=== PATIENT | male | born 1980 | race Two or more races ===

== ENCOUNTER 2024-12-22 15:28 | Emergency (ER) | payer OTHER, SELFPAY ==
[2024-12-22 15:53] VITALS: BP 110/72; PULSE 72; TEMP 37.3; O2SAT 97; BMI 21.7
--- NOTE | 2024-12-22 16:02 | XR_ITS ---
The [address] [address] Patient Name: FLY DOMINIQUE MRN: [id number] date: 1980 Sex: M Assigned Patient Location: ER Current Patient Location: ER Accession/Order Number: [id number] Exam Date: 12/22/2024 16:22 Report Date: 12/22/2024 16:39 At the request of: PATEL BRIGHT MD Procedure: XR hand RT min 3V right wrist 3 views, right hand 3 views CLINICAL HISTORY: injury COMPARISON: None FINDINGS: Right wrist: No focal soft tissue abnormality or acute bony process. Joint spaces appear maintained. No bony erosions. Right hand: No focal soft tissue abnormality. No acute bony process is seen. Joint spaces appear maintained. No bony erosions. XR/XR hand RT min 3V IMPRESSION: NO ACUTE BONY PROCESS. Impression dictated by: Pawel Herrera Jr., D.ODesiree 12/22/2024 4:39 PM Dictation Location: [facility] Electronically authenticated by: [id number] Y Date: 12/22/2024 16:39
--- NOTE | 2024-12-22 16:02 | XR_ITS ---
The [address] [address] Patient Name: FYL DOMINIQUE MRN: [id number] date: 1980 Sex: M Assigned Patient Location: ER Current Patient Location: ER Accession/Order Number: [id number] Exam Date: 12/22/2024 16:22 Report Date: 12/22/2024 16:39 At the request of: PATEL BRIGHT MD Procedure: XR hand RT min 3V right wrist 3 views, right hand 3 views CLINICAL HISTORY: injury COMPARISON: None FINDINGS: Right wrist: No focal soft tissue abnormality or acute bony process. Joint spaces appear maintained. No bony erosions. Right hand: No focal soft tissue abnormality. No acute bony process is seen. Joint spaces appear maintained. No bony erosions. XR/XR wrist RT min 3V IMPRESSION: NO ACUTE BONY PROCESS. Impression dictated by: Pawel Herrera Jr., D.ODesiree 12/22/2024 4:39 PM Dictation Location: [facility] Electronically authenticated by: [id number] Y Date: 12/22/2024 16:39
--- NOTE | 2024-12-22 17:20 | ED.GENADUL1 ---
HPI HPI - General Adult General Chief complaint: Extremity Injury, Upper Stated complaint: RIGHT UPPER EXTREMITY PROBLEM Time Seen by Provider: 12/22/24 17:08 Source: patient Mode of arrival: walk-in Limitations: no limitations History of Present Illness HPI narrative: Patient is a 44-year-old male who presents with right wrist pain after a fall on outstretched hands about a week and a half ago. Patient was evaluated at an urgent care and x-rays were negative for fracture. He has had persistent wrist pain that somewhat radiates into the forearm since the fall. He works with his hands a lot and has had a lot of issues and pain with gripping, pushing and pulling. He has been taking ibuprofen and Tylenol at home, using ice, and elevating. He has been wearing a wrist splint and his pain persists. He denies any numbness or tingling into the fingers. Related Data Allergies Allergy/AdvReac Type Severity Reaction Status Date / Time No Known Drug Allergies Allergy Verified 12/22/24 15:52 Opioid HPI Opioid Management Most Recent Opioid Data: Last Pain Scale 5 Today, 15:53 Review of Systems ROS Status of ROS 10 or more systems reviewed and unremarkable except as noted in history and below PFSH PFSH Social History Little interest or pleasure in doing things: not at all Feeling down, depressed, or hopeless: not at all Exam Narrative Exam Narrative: General: No distress, age-appropriate Skin: Warm, dry, no pallor. No rash. Head: Normocephalic, atraumatic. Eye: Pupils are equal, round and EOMI. No scleral icterus. Cardiovascular: Regular Rate and Rhythm without murmur, gallop or rub. Respiratory: No accessory muscle use or respiratory distress. Back: No midline thoracic or lumbar vertebral tenderness. Musculoskeletal: Full ROM of all extremities, except right wrist reduced ROM secondary to pain. Tenderness with palpation at the distal radius. Mild wrist swelling patient able to make a full fist. 2+ radial pulse palpated. Less than 2-second capillary refill to all fingers and thumb. Sensation intact distally with light touch. Neurological: A&O x4. No cranial nerve dysfunction observed. No truncal ataxia. Moves all extremities. Sensation intact. Psychiatric: Cooperative and interactive. Normal mood and affect. Constitutional Vital Signs, click to edit/add: Last Vital Signs Temp 99.1 F 12/22/24 15:53 Pulse 72 10/05/25 15:53 Resp 12 12/22/24 15:53 BP 110/72 12/22/24 15:53 Pulse Ox 97 12/22/24 15:53 O2 Del Method Room Air 12/22/24 15:53 Course Vital Signs Vital signs: Vital Signs Temperature 99.1 F 12/22/24 15:53 Pulse Rate 72 12/22/24 15:53 Respiratory Rate 12 12/22/24 15:53 Blood Pressure 110/72 12/22/24 15:53 Pulse Oximetry 97 12/22/24 15:53 Oxygen Delivery Method Room Air 12/22/24 15:53 Temperature 99.1 F 12/22/24 15:53 Pulse Rate 72 12/22/24 15:53 Respiratory Rate 12 12/22/24 15:53 Blood Pressure 110/72 12/22/24 15:53 Pulse Oximetry 97 12/22/24 15:53 Oxygen Delivery Method Room Air 12/22/24 15:53 Medical Decision Making MDM Narrative Medical decision making narrative: This is a 44-year-old male that presents with 1.5 weeks of right wrist pain after a fall on outstretched hands. He was evaluated in urgent care where x-rays were negative for fracture. He has been wearing a wrist splint intermittently to help with the pain. He has been working and does work with his hands and does a lot of lifting/pushing/pulling/gripping and is still having a lot of pain. X-ray right hand/wrist ordered. On arrival patient is in no distress, vitals are stable. Occult distal radius fracture -X-ray right hand negative for fracture, x-ray right wrist read as negative for fracture or dislocation. Upon my review and interpretation of the right wrist x-ray I disagree with the radiologist and there appears to be a nondisplaced distal radius fracture with some sclerosis to suggest new healing. - Results were discussed with patient, recommendations would be to stay in the splint at all times. Patient neurovascularly intact in splint. 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 - Continue to use OTC NSAIDs, ibuprofen and/or Tylenol, elevate, and ice as needed for - Follow-up with orthopedics, call tomorrow at 8 AM to get an appointment for next week. Patient was discharged in good condition, return precautions were discussed such as uncontrolled pain, neurovascular compromise, or any new or worsening symptoms. Pain was controlled, and plan is for close follow-up with orthopedics this week. Differential Diagnosis Differential Diagnosis: Occult distal radius fracture, wrist sprain Imaging Data Right hand/wrist x-ray: Attestation: I have reviewed the pertinent imaging results. Radiologist's impression: ITS Impressions Hand X-Ray 12/22/24 16:02 IMPRESSION: NO ACUTE BONY PROCESS. Impression dictated by: Pawel Herrera Jr., D.O. 12/22/2024 4:39 PM Dictation Location: [id number] Electronically authenticated by: [id number] Y Date: 12/22/2024 16:39 Wrist X-Ray 12/22/24 16:02 IMPRESSION: NO ACUTE BONY PROCESS. Impression dictated by: Pawel Herrera Jr., D.O. 12/22/2024 4:39 PM Dictation Location: [id number] Electronically authenticated by: [id number] Y Date: 12/22/2024 16:39 Discharge Plan Discharge Chief Complaint: Extremity Injury, Upper Clinical Impression: Distal radial fracture Patient Disposition: Home, Self-Care Time of Disposition Decision: 17:21 Condition: Good Mode of Transportation: Private Vehicle Print Language: Khmer Instructions: Arm Fracture in Adults (ED) Additional Instructions: Wear your wrist splint at all times, even when sleeping. Continue to elevate and use [id number] nonsteroidal anti-inflammatory such as ibuprofen and/or Tylenol. Follow-up with Orthopedics. Call tomorrow at 8 AM for an appointment. Referrals: Physician,Non-Staff, [Primary Care Provider] - 1 week LEIGH ANN ESTRADA [Physician] - As soon as possible
== END 2024-12-22 17:53 | disposition home or self-care (01) ==
PROVIDERS: Emergency Provider Emergency Medicine
DX: S52.501A Unspecified fracture of the lower end of right radius, initial encounter for closed fracture (principal); W19.XXXA Unspecified fall, initial encounter
CPT/HCPCS: 73110; 73130; 99283

== ENCOUNTER 2025-01-21 07:02 | Outpatient (RCR) | payer OTHER, SELFPAY | END 2025-03-06 08:08 | disposition home or self-care (01) | LOC: PT 07:02 | PROVIDERS: Visit Provider Physician Assistant | DX: S63.501D Unspecified sprain of right wrist, subsequent encounter (principal) | CPT/HCPCS: 97010; 97014; 97110; 97140; 97162 ==